=== PATIENT | female | born 1975 | race Caucasian/White ===

== ENCOUNTER 2016-06-20 11:44 | Emergency (ER) | payer BC ==
[2016-06-20 11:57] VITALS: TEMP 98.7; BMI 33.5
--- NOTE | 2016-06-20 12:22 | EDPRACDOC ---
- General Information Stated Complaint: R LEG PAIN; HX DVT Time Seen by Provider: 06/20/16 12:08 Information Source: Patient Mode Of Arrival: Car Home Medications: Home Medications Aspirin [Aspirin EC] 81 mg PO DAILY 08/09/13 Alprazolam [Xanax] 0.25 mg PO Q8H PRN #30 tab 12/07/14 Cyclobenzaprine HCl [Flexeril] 10 mg PO TID #15 tablet 06/20/16 Meloxicam 15 mg PO DAILY #15 tab 06/20/16 Allergies/Adverse Reactions: Allergies Allergy/AdvReac Type Severity Reaction Status Date / Time Penicillins Allergy Intermediate HIVES Verified 12/07/14 02:09 - History of Present Illness Onset: 2 DAYS HPI: PT STATES FOR THE LAST 1-2 DAYS SHE HAS BEEN HAVING RLE PAIN AND TIGHTNESS FEELING SIMILAR TO WHEN SHE HAD HER PREVIOUS DVT. 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 PT DENIES CP SOB AT THIS TIME. 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 Denies: Diabetes, Cancer, Stroke, Cardiac Disorders, Blood Disorders - Social Medical History Smoking Status: Never smoker ETOH: None Substance Abuse: None Lives With: Spouse Lives In: Home EDM Review of Systems - Review of Systems ROS Negative Except as Marked: Yes All systems reviewed and were negative except as marked Constitutional: No Symptoms Reported. negative: Fever, Chills, Weakness, Fatigue, Loss of Appetite Eyes: No Symptoms Reported. negative: Redness, Blurred Vision, Double Vision, Discharge, Pain, Light Sensitive, Photophobia Ears: No Symptoms Reported. negative: Pain, Hearing Loss, Drainage, Ear Pulling Throat: No Symptoms Reported. negative: Pain, Swelling Nose: No Symptoms Reported. negative: Congestion, Bleeding, Discharge, Injection, Swelling, Deformity, Ecchymosis, Tender, Abrasion, Laceration Mouth: No Symptoms Reported. negative: Pain, Drooling Respiratory: No Symptoms Reported. negative: Cough, Brassy Cough, Barky Cough, Shortness of Breath, Wheezing, Hemoptysis Cardiovascular: No Symptoms Reported. negative: Chest Pain, Palpitations, Syncope, Edema, Orthopnea, PND, Skin Mottling, Cyanosis Gastrointestinal: No Symptoms Reported. negative: Pain, Constipation, Nausea, Vomiting, Diarrhea, Melena, Formula Intolerance Genitourinary: No Symptoms Reported. negative: Dysuria, Hematuria, Frequency, Discharge, Bleeding, Testicular Pain, Neurological: No Symptoms Reported. negative: Headache, Dizziness, Seizure, Numbness, Weakness, Speech Difficulty, Gait Difficulty Musculoskeletal: Leg (RLE). negative: Arm, Ankle, Back, Chestwall, Elbow, Forearm, Femur, Foot, Hand, Hip, Knee, Neck, Pelvis, Ribs, Shoulder, Wrist Integumentary: No Symptoms Reported. negative: Itching, Rash, Bruising, Wound Allergic/Immunologic: No Symptoms Reported. negative: Hives, Itching Hematologic: No Symptoms Reported. negative: Lymphadenopathy, Easy Bruising, Easy Bleeding Endocrine: No Symptoms Reported. negative: Weight Gain, Weight Loss Psychiatric: No Symptoms Reported. negative: Anxiety, Depression, Hallucinations, Insomnia, Suicidal - Physical Exam Constitutional: No apparent distress, Alert (Awake) Oriented to: Time, Person, Place Last recorded Vital Signs: Last Vital Signs Temp 98.7 F 06/20/16 11:55 Pulse 76 06/20/16 11:55 Resp 18 06/20/16 11:55 BP 146/84 06/20/16 11:55 Pulse Ox 98 06/20/16 11:55 Oxygen Pulse Oxygen Saturation 98 O2 Device Oxygen Flow Rate Fraction of Inspired Oxygen ( FIO2) - HEENT Head: Normal ( normocephalic) Eye Exam: Normal (PERRL, EOMI, Sclera white) Oropharynx: Normal (Pharynx:Moist without exudate,Gums-no swelling) Tympanic Membrane: Normal ENT EAC: Normal TMJ: Normal Nose: No Symptoms Reported (septum midline) Neck: Normal (FROM, trachea at midline) - Respiratory/Cardiovascular Respiratory: Normal - CTA (BBS clear to auscultation without adventitious sounds ) Cardiovascular: Normal (RRR without murmur, gallop or rub) - GI Auscultation: Normal (NABS) Palpation: Normal (Soft,No rebound or guarding, non distended) Tenderness: Non tender Pacheco's Sign: Negative - Bladder: Normal - Musculoskeletal Back: Normal (Non-Tender) Extremities: Normal (Normal tone, Pulses 2+ No cyanosis or edema, FROM) - Integumentary Skin: Normal, Warm, Dry Lymphatics: Normal (no adenopathy) - Neurologic Memory Impaired: Normal Motor Function: Normal (Normal tone, Pulses 2+ No cyanosis or edema, FROM) Cranial Nerve: Normal (CN II-X11 intact sensation, strength 5/5) Cerebellar: Normal Mood Description: Normal Perception: Normal ED Low Extremities Phys Exam - Lower Leg Right Lower Leg Symptoms: Moderate Tenderness (POSTERIOR CALF) - Deficits Deficits: None - Differential Diagnosis Sprain, Other (DVT) - Diagnostic Imaging RLE US Image interpreted by: Radiologist IMPRESSION: No evidence of right lower extremity deep venous thrombosis. Decision Time to Discharge: 13:26 - Departure Disposition: Home Condition: Stable Final Diagnosis: Pain in lower limb Instructions: RICE: Routine Care for Injuries Education/Counseling Given To: Patient Education/Counseling Given Regarding: Diagnosis, Treatment, Prognosis, Follow Up Referrals: Sigifredo Pisano MD [Primary Care Provider] - One Week Prescriptions: Cyclobenzaprine HCl [Flexeril] 10 mg PO TID #15 tablet Meloxicam 15 mg PO DAILY #15 tab Additional Instructions: RETURN FOR WORSE OR DIFFERENT SYMPTOMS.
--- NOTE | 2016-06-20 13:24 | DIRPT ---
CLINICAL DATA: Right lower extremity pain and history of prior DVT. EXAM: RIGHT LOWER EXTREMITY VENOUS DOPPLER ULTRASOUND TECHNIQUE: Wu-scale sonography with graded compression, as well as color Doppler and duplex ultrasound were performed to evaluate the lower extremity deep venous systems from the level of the common femoral vein and including the common femoral, femoral, profunda femoral, popliteal and calf veins including the posterior tibial, peroneal and gastrocnemius veins when visible. The superficial great saphenous vein was also interrogated. Spectral Doppler was utilized to evaluate flow at rest and with distal augmentation maneuvers in the common femoral, femoral and popliteal veins. COMPARISON: Prior right lower extremity venous study on 07/03/2015 FINDINGS: Contralateral Common Femoral Vein: Respiratory phasicity is normal and symmetric with the symptomatic side. No evidence of thrombus. Normal compressibility. Common Femoral Vein: No evidence of thrombus. Normal compressibility, respiratory phasicity and response to augmentation. Saphenofemoral Junction: No evidence of thrombus. Normal compressibility and flow on color Doppler imaging. Profunda Femoral Vein: No evidence of thrombus. Normal compressibility and flow on color Doppler imaging. Femoral Vein: No evidence of thrombus. Normal compressibility, respiratory phasicity and response to augmentation. Popliteal Vein: No evidence of thrombus. Normal compressibility, respiratory phasicity and response to augmentation. Calf Veins: No evidence of thrombus. Normal compressibility and flow on color Doppler imaging. Superficial Great Saphenous Vein: No evidence of thrombus. Normal compressibility and flow on color Doppler imaging. Venous Reflux: None. Other Findings: No evidence of superficial thrombophlebitis or abnormal fluid collection. IMPRESSION: No evidence of right lower extremity deep venous thrombosis. Electronically Signed By: Roverto Buck M.D. On: 06/20/2016 13:22
[2016-06-20 13:52] VITALS: BP 126/67; PULSE 92
== END 2016-06-20 13:51 | disposition home or self-care (01) ==
LOC: EDMC 11:44
DX: M79.669 Pain in unspecified lower leg (principal)
CPT/HCPCS: 99282